=== PATIENT | male | born 1945 | race Caucasian/White ===

== ENCOUNTER → 2016-08-13 | Outpatient (CLI) | payer OTHER ==
[~2016-08-13] VITALS: Ht 177.8 cm; Wt 77.6 kg
[~2016-08-13] MED LIST: B-COMPLEX-VITA1 EACH PO; CARTIA XT180 MG PO; DULERA 100 MCG/13 GM IH; LEVO-T25 MCG PO; MOXIFLOXACIN H400 MG PO; PREDNISONE10 MG PO; SPIRIVA1 INHALATI IH; THEOPHYLLINE A100 MG PO; VENTOLIN HFA18 GM IH; VITAMIN D32000 UNI1 PO
[2016-08-13 14:40] LABS: HEMATOCRIT 36.6 % (38.0-50.0); MCH 30.4 PG (29.0-34.0); MCHC 33.1 G/DL (30.0-36.0); MEAN PLAT.VOLUME 9.1 uM^3 (9.0-12.4); PLATELET COUNT 344 K/uL (156-360); RBC DIS.WIDTH-SD 43.7 % (39-53); RED BLOOD COUNT 3.98 M/uL (4.00-5.50)
[2016-08-13 14:58] LABS: PROTHROMBIN TIME 10.5 (9.2-11.2); PTT 34.3 (25-32)
== END | disposition home or self-care (01) ==
LOC: AMB 13:10
PROVIDERS: Internal Medicine Pulmonary Disease
DX: C34.32 Malignant neoplasm of lower lobe, left bronchus or lung (principal); R06.02 Shortness of breath; R05 Cough
CPT/HCPCS: 71010; 85027; 85610; 85730; 86850; 86900; 86901; 87070; 87116; 87205; 87206; 88108; 88305; 88341 TC; 88342 TC; 93005; J0461; J2175; J2250; J2310; J2550; J3010

== ENCOUNTER → 2016-08-21 | Outpatient (CLI) | payer OTHER ==
[~2016-08-21] VITALS: Ht 177.8 cm; Wt 79.4 kg
[~2016-08-21] MED LIST changes: +THEO-24400 MG PO
[2016-08-21 15:42] LABS: MCH 29.7 PG (29.0-34.0); MCV 90.1 FL (86-99); RBC DIS.WIDTH-CV 13.1 % (11.8-14.6); RBC DIS.WIDTH-SD 42.7 % (39-53); RED BLOOD COUNT 4.44 M/uL (4.00-5.50)
[2016-08-21 15:43] LABS: WHITE BLOOD COUNT 21.2 K/uL (4.1-10.2)
[2016-08-21 16:16] LABS: MEAN PLAT.VOLUME 9.9 uM^3 (9.0-12.4); PLATELET COUNT 371 K/uL (156-360)
== END | disposition home or self-care (01) ==
LOC: AMB 13:54
PROVIDERS: Internal Medicine Pulmonary Disease
PROC: 0BJK4ZZ Inspection of Right Lung, Percutaneous Endoscopic Approach (ICD-10-PCS; principal; 2016-08-21)
DX: C34.90 Malignant neoplasm of unspecified part of unspecified bronchus or lung (principal); Z53.8 Procedure and treatment not carried out for other reasons
CPT/HCPCS: 85027

== ENCOUNTER → 2016-08-22 | Day surgery (SDC) | payer OTHER | END | disposition home or self-care (01) | LOC: AMB 15:30 | PROC: 0BBB8ZX Excision of Left Lower Lobe Bronchus, Via Natural or Artificial Opening Endoscopic, Diagnostic (ICD-10-PCS; principal; 2016-08-22) | DX: C34.32 Malignant neoplasm of lower lobe, left bronchus or lung (principal); E03.9 Hypothyroidism, unspecified; I10 Essential (primary) hypertension; J44.9 Chronic obstructive pulmonary disease, unspecified; Z87.891 Personal history of nicotine dependence | CPT/HCPCS: 71010; 76001; 88305; 88341 TC; 88342 TC; J0461; J2175; J2250; J2310; J2550; J3010 ==